=== PATIENT | female | born 1990 | race Hispanic/Latino ===

== ENCOUNTER 2016-09-25 22:15 | Inpatient (IN) | payer OTHER ==
[~2016-09-25] VITALS: Ht 142.2 cm; Wt 61.2 kg
[~2016-09-25 22:15] MED LIST: ANTIVERT PO; ZOFRAN ODT4 MG PO
[2016-09-25 22:20] LABS: URINE BILIRUBIN - DIPSTICK NEGATIVE (NEGATIVE); URINE BLOOD DIPSTICK NEGATIVE (NEGATIVE); URINE CLARITY CLEAR; URINE COLOR YELLOW; URINE GLUCOSE - DIPSTICK NEGATIVE (NEGATIVE); URINE KETONE NEGATIVE (NEGATIVE); URINE LEUK ESTERASE NEGATIVE (NEGATIVE); URINE NITRITE - DIPSTICK NEGATIVE (Negative); URINE PROTEIN - DIPSTICK TRACE mg/dL (NEG-TRACE); URINE SPECIFIC GRAVITY 1.025; URINE UROBILINOGEN - DIPSTICK 0.2 E.U./dL (0.2)
[2016-09-25 22:21] LABS: BARBITURATES NEGATIVE (NEGATIVE); COCAINE NEGATIVE (NEGATIVE); METHADONE NEGATIVE (NEGATIVE); OXCYCODONE NEGATIVE (NEGATIVE); TETRAHYDROCANNABIONOL NEGATIVE (NEGATIVE); TRICYLIC ANTIDEPRESSANTS NEGATIVE (NEGATIVE)
[2016-09-25 22:40] VITALS: BP 107/66
--- NOTE | 2016-09-25 22:40 | NUR ---
COMES TO UNIT WITH COMPLAINTS OF CONTRACTIONS. EDC 09/18/16 WITH GESTATIONAL AGE OF 41 WEEKS. STATES CONTRACTIONS STARTED 09/15/16 AT 0400 BUT NOW ARE STRONGER. STOCK TURNER HERE TO ASK QUESTIONS AND EXPLAIN CONSENTS. PT AND SIGNIFICANT OTHER SPEAK VERY LITTLE POLISH. WILL MONITOR.
[2016-09-25] MEDS ORDERED: PRE-NATAL PO (23:01)
[2016-09-25 23:10] VITALS: BP 105/63
--- NOTE | 2016-09-25 23:23 | NUR ---
PT TAKEN OFF MONITOR TO AMBULATE. REACTIVE STRIP NOTED. WILL RECHECK CERVIX AFTER AMBULATING.
[2016-09-26] VITALS (12 sets, daily range): BP systolic 93–135; BP diastolic 42–74
--- NOTE | 2016-09-26 00:20 | NUR ---
0010: BACK ON MONITORS. SVE PERFORMED. PT IS 3-[address] POOL NOTIFIED OF PT STATUS. ORDERS RECEIVED. 0020: IV STARTED IN LEFT FORARM WITHOUT DIFFICULTY. BLOOD AND TYPE AND CROSSMATCH DRAWN. SEE IV DOCUMENTATION FOR DETAIL.
[2016-09-26 00:30] LABS: HEMATOCRIT 39.8 % (37.0-47.0); HEMOGLOBIN 13.7 g/dl (12.0-16.0); IMMATURE GRANULOCYTES 0.5 % (0.0-1.0); MEAN CELL VOLUME 94.3 fL CALC (80.0-100.0); MEAN CORPUSCULAR HGB 32.5 pG CALC (26.0-32.0); MEAN CORPUSCULAR HGB CONC 34.4 g/L CALC (32.0-36.0); NEUT# 6.19 thou/uL (2.00-7.15); RED BLOOD COUNT 4.22 mill/uL (4.20-5.60); RED CELL DISTRI WIDTH 14.1 % (11.5-15.5)
--- NOTE | 2016-09-26 00:45 | NUR ---
0034: DR. POOL HERE TO SEE PT. SVE PERFORMED. PT IS 5-6CM, "0" STATION. PHYSICIAN NOTIFIED OF PT REQUESTING EPIDURAL. 0045: TAKEN TO BIRTHING ROOM 1 PER W/C. IV PATENT. LR BOLUS BEING GIVEN. SIGNIFICANT OTHER ACCOMPANIES PT TO BR 1.
--- NOTE | 2016-09-26 00:46 | NUR ---
TO BR 1
[2016-09-26 00:50] LABS: ALBUMIN 3.7 g/dL (3.2-5.0); ALKALINE PHOSPHATASE 431 u/l (38-126); ANION GAP 13 (6-22 (CALC)); BILIRUBIN, TOTAL 0.3 mg/dL (0.0-1.4); BUN 9 mg/dL (7-17); BUN/CREATININE RATIO 17 (12-20 (CALC)); CARBON DIOXIDE 20 mmol/l (22-30); CHLORIDE 109 mmol/l (95-108); CREATININE 0.5 mg/dL (0.5-1.0); GFR > 60 ML/MIN (>=60 (CALC)); GFR FOR AFR.AMER. > 60 ML/MIN (>=60 (CALC)); GLUCOSE 78 mg/dL (65-105); SGOT/AST 25 u/l (14-36); SGPT/ALT 31 u/l (9-52); SODIUM 139 mmol/l (137-146); TOTAL PROTEIN 6.5 g/dL (6.3-8.2)
--- NOTE | 2016-09-26 01:15 | NUR ---
0055: NUBAIN IVP GIVEN PER PT REQUEST WHILE WAITING FOR CERTIFIED NURSES AIDE TO COME DO EPIDURAL. PT BECOMES VERY GROGGY IMMEDIATELY BUT DOES REPOND TO VERBAL STIMULATION. 0115: YANE MEREDITH CERTIFIED NURSES AIDE HERE TO SEE PT. INFORMED CERTIFIED NURSES AIDE THAT PHYSICIAN WAS GOING TO PERFORM SVE. DR. POOL HERE. PT IS 8CM WITH BULGING BAD. AROM OF CLEAR AMNIOTIC FLUID. CERTIFIED NURSES AIDE ON STANDBY IF NEEDED. PT REMAINS GROGGY AND DOES NOT APPEAR TO BE FEELING CONTRACTIONS MUCH. INFORMED PT SHE IS ALMOST READY TO BEGIN PUSHING SO UNABLE TO GIVE EPIDURAL AT THIS TIME. PT VOICES UNDERSTANDING. INTERPRETATION AND INFORMATION GIVEN BY DR. POOL FOR THIS CONVERSATION. PT AGREES TO POC.
--- NOTE | 2016-09-26 01:48 | NUR ---
PT DELIVERS VIABLE FEMALE OVER INTACT PERINEUM. YAMILE RN HERE TO ATTEND TO .
--- NOTE | 2016-09-26 03:30 | NUR ---
0315: PT TO RESTROOM. UNABLE TO VOID. DEMONSTRATED PERICARE TO PT. NODS HEAD IN UNDERSTANDING. PERICARE PERFORMED BY PT. CLEAN GOWN GIVEN. 0330: AMBULATES TO ROOM 207 WITH 1 ASSIST FROM RN. GAIT IS STEADY AND EVEN. DENIES DIZZINESS. STATES SHE IS TIRED. IV INFUSING PER MED PUMP AT 125CC/HR. IV SITE WNL. GIVEN TURKEY SANDWICH AND JELLO FOR SNACK. WILL CONTINUE FUNDAL CHECKS.
--- NOTE | 2016-09-26 04:30 | NUR ---
PT RESTING WITH EYES CLOSED. CALL LIGHT WITHIN REACH. IN CRIB NEXT TO BED. SIGNIFICANT OTHER SLEEPING IN RECLINER.
--- NOTE | 2016-09-26 06:01 | NUR ---
PT . RESPIRATIONS EVEN AND UNLABORED. NO SIGNS OF DISTRESS. NO QUESTIONS OR CONCERNS. BED IN LOW POSITION. CALL LIGHT WITHIN REACH.
--- NOTE | 2016-09-26 06:25 | NUR ---
ASSISTED PT TO BATHROOM TO VOID. GAIT STEADY AND EVEN. DENIES DIZZINESS. UNABLE TO VOID. PERICARE COMPLETED BY PT. LISA HERRERA NOTED ON PAD. IV CONTINUES TO INFUSE PER MED PUMP AT 125CC/HR. DENIES PAIN. REPORT READY FOR DAY SHIFT.
--- NOTE | 2016-09-26 07:04 | NUR ---
PATIENT SITTING IN BED. PATIENT DENIES ANY PAIN AT THIS TIME. PATIENT STATES SHE HAS BEEN UNABLE TO VOID SINCE DELIVERY. PATIENT INFORMED THAT SHE HAS A COUPLE MORE HOURS TO VOID PRIOR TO NEEDING CATHERIZATION. PATIENT ADVISED TO SIT ON TOILET, LET THE WATER RUN IN THE SINK, AND TRY TO RELAX. PATIENT EDUCATED ABOUT THE IMPORTANCE OF TRYING TO VOID EVERY 2 HOURS TO AVOID DISPLACEMENT OF THE UTERUS. FUNDUS IS FIRM AT THE UMBILICUS AT THIS TIME AND PATIENT DENIES ANY DISCOMFORT WHEN MASSAGED.
--- NOTE | 2016-09-26 09:00 | NUR ---
PATIENT UP AND OUT OF BED TO VOID 300ML. PITOCIN INFUSION COMPLETE AND IV DISCONNECTED. PATIENT STATES SHE WANTS TO SHOWER. ALL MATERIALS PROVIDED AND PATIENT INTO SHOWER. PATIENT INSTRUCTED TO CALL ME AN HOUR AFTER SHE SHOWERS SO SHE CAN PERFORM OTF CARE AND I CAN ASSESS HER BLEEDING.
--- NOTE | 2016-09-26 12:26 | NUR ---
PATIENT SITTING IN BED TALKING ON THE PHONE, PATIENT DENIES ANY PAIN OR NEEDS AT THIS TIME.
--- NOTE | 2016-09-26 15:02 | NUR ---
PATIENT LAYING IN BED RESTING. PATIENT DENIES ANY PAIN OR NEEDS AT THIS TIME.
--- NOTE | 2016-09-26 16:17 | NUR ---
PATIENT MEDICATED FOR PAIN REQUESTED; SEE EMAR. PATIENT DENIES ANY FURTHER NEEDS AT THIS TIME.
--- NOTE | 2016-09-26 19:00 | NUR ---
PT VISITING WITH FAMILY, POC REVIEWED, UNDERSTANDING VERBALIZED
--- NOTE | 2016-09-27 01:30 | NUR ---
PT SLEEPING SOUNDLY, AROUSES EASILY. DENIES ANY NEEDS OR CONCERNS AT THIS TIME
--- NOTE | 2016-09-27 05:45 | NUR ---
CBC DRAWN X1, PT TOLERATED WELL. PT DENIES ANY PAIN AT CURRENT TIME
[2016-09-27 05:53] VITALS: BP 95/65
--- NOTE | 2016-09-27 05:55 | NUR ---
REPORT PREPARED FOR ONCOMING SHIFT
[2016-09-27 05:56] LABS: HEMATOCRIT 37.5 % (37.0-47.0); HEMOGLOBIN 12.9 g/dl (12.0-16.0); IMMATURE GRANULOCYTES 0.6 % (0.0-1.0); MEAN CELL VOLUME 94.2 fL CALC (80.0-100.0); MEAN CORPUSCULAR HGB 32.4 pG CALC (26.0-32.0); MEAN CORPUSCULAR HGB CONC 34.4 g/L CALC (32.0-36.0); NEUT# 4.08 thou/uL (2.00-7.15); RED BLOOD COUNT 3.98 mill/uL (4.20-5.60); RED CELL DISTRI WIDTH 14.1 % (11.5-15.5)
--- NOTE | 2016-09-27 06:50 | NUR ---
RECEIVED REPORT FROM YAMILE ESCOBAR RN.
--- NOTE | 2016-09-27 07:15 | NUR ---
PT IS UP IN BED. RESTING QUIETLY IN ARMS. PT STATES NO PAIN, QUESTIONS OR CONCERNS AT THIS TIME. CONDITION IS STABLE. ASSESSMENT CHARTED. PT REVIEWING PRINTED EDUCATION AND WATCHING VIDEOS NOW.
--- NOTE | 2016-09-27 08:25 | NUR ---
DR POOL IN TO SEE PT. OBTAINED D/C ORDERS
[2016-09-27] MEDS ORDERED: NORCO1 TA1 PO (09:00)
[2016-09-27] MEDS ORDERED: IBUPROFEN600 MG PO (09:02)
--- NOTE | 2016-09-27 10:35 | NUR ---
PT UP IN BED, CONDITION IS STABLE. NO NEEDS AT THIS TIME. SIG OTHER AND CHILDREN IN TO VISIT.
--- NOTE | 2016-09-27 12:50 | NUR ---
PT IS UP IN CHAIR . CONDITION IS STABLE. FAMILY AT BEDSIDE AND SUPPORTIVE. NO NEEDS AT THIS TIME. PREPARING FOR D/C
--- NOTE | 2016-09-27 13:25 | NUR ---
Discharge instructions given and reviewed. Pt. verbalizes understanding. Discharged in good condition via Wheelchair to Home accompanied by significant other.
== END 2016-09-27 13:25 | disposition home or self-care (01) | DRG 775 ==
LOC: OBOP 22:15 → OB 22:15 → OBOP 09-26 00:04 → OB 09-26 00:05
PROC: 10E0XZZ Delivery of Products of Conception, External Approach (ICD-10-PCS; principal; 2016-09-26)
DX: O48.0 Post-term pregnancy (principal); Z37.0 Single live birth; Z3A.41 41 weeks gestation of pregnancy